=== PATIENT | female | born 1990 | race Caucasian/White ===

== ENCOUNTER 2016-08-03 16:30 | Emergency (ER) | payer OTHER ==
--- NOTE | 2016-08-03 18:43 | ED ORDER SUMMARY ---
..... Patient: JENSEN AREVALO OrderSheet [facility] VisitID: [id number] [place] [address] 25y, F Registration Date/Time: 08/03/2016 ORDER SHEET Weight: 72.5 kg (stated) Allergies: Amoxicillin GENERAL ORDERS: US Soft Tissue Anywhere (no pain with passive ROM of the fingers/hand) Urgent (16:57 08/03/2016 Lamin Blake) (Ack 17:01 Broderick) (18:49 Esha Hedrick.NJai) Ice (16:58 08/03/2016 Lamin Blake) (Ack 17:01 Broderick) (17:01 Broderick) MEDICATION ORDERS: Toradol IM 60 mg (NOW) (16:58 08/03/2016 Lamin Blake) IV FLUIDS: ORDER SHEET NOTES: [Electronically signed by Amalia Nam R.N. (18:55 08/03/2016)] [Electronically signed by Delgado Mercado Dr. (02:01 08/10/2016)] [Electronically locked/signed by Amalia Nam R.N. (18:55 08/03/2016)]
--- NOTE | 2016-08-03 18:43 | ED NURSING NOTES ---
Clinical Report - Nurses [facility] [place] [address] 08/03/2016 16:30 [id number] TRI[facility] Triage time 16:37 Aug 03 2016. Acuity: LEVEL 4. Chief Complaint: LEFT UPPER EXTREMITY PAIN. Location of symptoms- left forearm. 16:41 08/03/16. SEPSIS SCREEN: Sepsis Screen. Negative (no infection suspected/documented). LUIS F COMA SCORE: [place] Coma Scale: 15- eyes open spontaneously (4); best verbal response- oriented x 4 (5); best motor response- obeys commands (6). --16:41 Amalia Nam R.N. 16:37 08/03/16. BP: 124/87 (regular adult cuff) taken on the left arm, while sitting. HR: 87. RR: 18 (regular). O2 saturation: 100% on room air. Temp: 98.4 F (oral). Pain level now: 8/10. --16:41 Amalia Nam R.N. Weight: 72.5 kg stated. Height/Length: 60 inches Per Patient. BMI: 31.2. --16:41 Amalia Nam R.N. Medications None. --16:39 Amalia Nam R.N. Allergies Amoxicillin. Definite Moderate(nausea, vomiting) (contipation) --16:39 Amalia aNm R.N. History Arrived by private vehicle. Historian: patient. No injury occurred. This occurred today. It is described as radiating to the left upper extremity and upper arm. 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 Treatment FLOW FLOOR ATTENDANT: Ice. PAST MEDICAL HX: Tetanus status: up-to-date. SOCIAL HX: Never smoker. Occasional alcohol use; consumes liquor and wine. No drug use. No infectious disease exposure. ABUSE ASSESSMENT: No report of abuse. --16:41 Amalia Nam R.N. PROBLEMS: Gastroenteritis. Back Pain. Ureterolithiasis. Bronchitis. Cough. URI. Abdominal Pain. UTI - Urinary Tract Infection. Bladder Infections. Immunizations. LNMP - Last Normal Menstrual Period. --16:39 Amalia Nam R.N. ADDITIONAL SURGERIES: Bunionectomy. Tonsillectomy. --16:39 Amalia Nam R.N. Interventions ID band on patient. To treatment room. --16:41 Amalia Nam R.N. PHYSICAL ASSESSMENT 16:42 08/03/16. Ambulatory to room. GENERAL / NEURO / PSYCH: Oriented X 4. EXTREMITIES: Extremities exhibit normal ROM. Left forearm: tenderness and swelling. ( tender with touch). SKIN: Skin intact. Skin is warm. --16:42 Amalia Nam R.N. NURSING PROGRESS NOTES 16:43 08/03/16. The plan of care for this patient has been created. Extremity elevated. Reassurance given. Two patient identifiers checked. Call light placed in reach. Side rails up x 1. Bed placed in lowest position. Brakes of bed on. Patient ready for evaluation- chart flagged and ED physician notified. --16:43 Amalia Nam R.N. 17:13 08/03/2016 Toradol (Ketorolac Tromethamine) IM 60 mg given. Given in the right deltoid. Allergies verified and confirmed 5 rights. --17:13 Amalia Nam R.N. 17:35 08/03/2016 Toradol IM Response: no adverse reaction pain is improving. Symptoms have improved the patient feels better. --17:35 Amalia Nam R.N. 17:38 08/03/16. ( Patient doing good, nothing needed at this time, boyfriend sitting at bed side). --17:38 Amalia Nam R.N. 17:35 08/03/16. BP: 112/74 (regular adult cuff) taken on the left arm, while sitting. HR: 79. RR: 18 (regular). O2 saturation: 100% on room air. Temp: 98.2 F (oral). Pain level now: 0/10. --17:38 Amalia Nam R.N. 18:14 08/03/16. ( Patient still waiting on scan no pain noted per patient). --18:14 Amalia Nam R.N. DISPOSITION / DISCHARGE 18:54 08/03/16. Condition at departure: improved. No learning barriers present. Discharge instructions provided and reviewed with the patient. Reviewed medication(s) side effects, precautions and dosing information. Reviewed positioning instructions (ice). Patient verbalized understanding. Written instructions provided in Romansh. The patient was discharged by the physician. She was discharged home and accompanied by administrative law judge. She left the Emergency Department ambulatory and via private vehicle. Logistics Research Engineer driving. --18:54 Amalia Nam R.N. 18:51 08/03/16. BP: 120/76 (regular adult cuff) taken on the left arm, while sitting. HR: 80. RR: 18 (regular). O2 saturation: 100% on room air. Temp: 98.2 F (oral). Pain level now: 06/27. --18:54 Amalia Nam R.N. Departure time: 18:54 Aug 03 2016. --18:54 Amalia Nam R.N. Locked/Released at 08/03/2016 18:55 by Amalia Nam R.N.
--- NOTE | 2016-08-03 18:43 | ED NURSING NOTES ---
Clinical Report - Nurses [facility] [place] [address] 08/03/2016 16:30 [id number] Triage time 16:37 Aug 03 2016. Acuity: LEVEL 4. Chief Complaint: LEFT UPPER EXTREMITY PAIN. Location of symptoms- left forearm. 16:41 08/03/16. SEPSIS SCREEN: Sepsis Screen. Negative (no infection suspected/documented). LUIS F COMA SCORE: [place] Coma Scale: 15- eyes open spontaneously (4); best verbal response- oriented x 4 (5); best motor response- obeys commands (6). --16:41 Amalia Nam R.N. 16:37 08/03/16. BP: 124/87 (regular adult cuff) taken on the left arm, while sitting. HR: 87. RR: 18 (regular). O2 saturation: 100% on room air. Temp: 98.4 F (oral). Pain level now: 8/10. --16:41 Amalia Nam R.N. Weight: 72.5 kg stated. Height/Length: 60 inches Per Patient. BMI: 31.2. --16:41 Amalia Nam R.N. Medications None. --16:39 Amalia Nam R.N. Allergies Amoxicillin. Definite Moderate(nausea, vomiting) (contipation) --16:39 Amalia Nam R.N. History Arrived by private vehicle. Historian: patient. No injury occurred. This occurred today. It is described as radiating to the left upper extremity and upper arm. 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 Treatment ESCALATOR ATTENDANT: Ice. PAST MEDICAL HX: Tetanus status: up-to-date. SOCIAL HX: Never smoker. Occasional alcohol use; consumes liquor and wine. No drug use. No infectious disease exposure. ABUSE ASSESSMENT: No report of abuse. --16:41 Amalia Nam R.N. PROBLEMS: Gastroenteritis. Back Pain. Ureterolithiasis. Bronchitis. Cough. URI. Abdominal Pain. UTI - Urinary Tract Infection. Bladder Infections. Immunizations. LNMP - Last Normal Menstrual Period. --16:39 Amalia Nam R.N. ADDITIONAL SURGERIES: Bunionectomy. Tonsillectomy. --16:39 Amalia Nam R.N. Interventions ID band on patient. To treatment room. --16:41 Amalia Nam R.N. PHYSICAL ASSESSMENT 16:42 08/03/16. Ambulatory to room. GENERAL / NEURO / PSYCH: Oriented X 4. EXTREMITIES: Extremities exhibit normal ROM. Left forearm: tenderness and swelling. ( tender with touch). SKIN: Skin intact. Skin is warm. --16:42 Amalia Nam R.N. NURSING PROGRESS NOTES 16:43 08/03/16. The plan of care for this patient has been created. Extremity elevated. Reassurance given. Two patient identifiers checked. Call light placed in reach. Side rails up x 1. Bed placed in lowest position. Brakes of bed on. Patient ready for evaluation- chart flagged and ED physician notified. --16:43 Amalia Nam R.N. 17:13 08/03/2016 Toradol (Ketorolac Tromethamine) IM 60 mg given. Given in the right deltoid. Allergies verified and confirmed 5 rights. --17:13 Amalia Nam R.N. 17:35 08/03/2016 Toradol IM Response: no adverse reaction pain is improving. Symptoms have improved the patient feels better. --17:35 Amalia Nam R.N. 17:38 08/03/16. ( Patient doing good, nothing needed at this time, boyfriend sitting at bed side). --17:38 Amalia Nam R.N. 17:35 08/03/16. BP: 112/74 (regular adult cuff) taken on the left arm, while sitting. HR: 79. RR: 18 (regular). O2 saturation: 100% on room air. Temp: 98.2 F (oral). Pain level now: 0/10. --17:38 Amalia Nam R.N. 18:14 08/03/16. ( Patient still waiting on scan no pain noted per patient). --18:14 Amalia Nam R.N. DISPOSITION / DISCHARGE 18:54 08/03/16. Condition at departure: improved. No learning barriers present. Discharge instructions provided and reviewed with the patient. Reviewed medication(s) side effects, precautions and dosing information. Reviewed positioning instructions (ice). Patient verbalized understanding. Written instructions provided in Pashto. The patient was discharged by the physician. She was discharged home and accompanied by line up worker. She left the Emergency Department ambulatory and via private vehicle. Boat Puller driving. --18:54 Amalia Nam R.N. 18:51 08/03/16. BP: 120/76 (regular adult cuff) taken on the left arm, while sitting. HR: 80. RR: 18 (regular). O2 saturation: 100% on room air. Temp: 98.2 F (oral). Pain level now: 06/27. --18:54 Amalia Nam R.N. Departure time: 18:54 Aug 03 2016. --18:54 Amalia Nam R.N. Locked/Released at 08/03/2016 18:55 by Amalia Nam R.N.
--- NOTE | 2016-08-03 18:43 | ED CLINICAL REPORT ---
Clinical Report - Physicians/Mid Levels [facility] [address] [place] [address] 08/03/2016 16:30 Patient: JENSEN AREVALO Time Seen: 1648. Arrived- By private vehicle. Historian- patient. HISTORY OF PRESENT ILLNESS Chief Complaint: Injury to left forearm. The injury happened past few days. Occurred at work. ( unknown how it was injured.). Patient denies injury to the head or neck. No other injury. REVIEW OF SYSTEMS The patient has had new onset of localized swelling. No tingling, numbness, weakness, suspected foreign body or skin laceration. PAST HISTORY See nurses notes. SOCIAL HISTORY Never smoker. Occasional alcohol use. No drug use. No recent travel. Is a local resident. ADDITIONAL NOTES The nursing notes have been reviewed. PHYSICAL EXAM Vital Signs: 08/03/2016 16:37 BP: 124/87. HR: 87. RR: 18. O2 saturation: 100%. Temp: 98.4 F. Pain level now: 8/10. Blood pressure normal. Oxygen saturation normal. Appearance: Alert. Oriented X3. No acute distress. Head: Head atraumatic. Eyes: Pupils equal, round and reactive to light. Eyes normal inspection. ENT: Ears normal. Nose normal. Pharynx normal. Neck: Normal inspection. Neck supple. C-spine non-tender. CVS: Normal heart rate and rhythm. Heart sounds normal. Pulses normal. Respiratory: No respiratory distress. Breath sounds normal. Chest nontender. Abdomen: No visible injury. Soft and nontender. Bowel sounds normal. Extremities: Mild soft tissue tenderness present over the distal left forearm. No signs of infection present in the upper extremities. No upper extremity bony tenderness. Extremities otherwise negative. Neuro, Vascular and Tendons: Vascular status intact. No pulse deficit present. Capillary refill not prolonged. Sensation intact. No sensory deficit. Motor intact. Tendon function intact. No functional tendon deficit or tendon injury seen. No weakness. (No increased pain with passive or active range of motion of the hand or elbow/wrist. vomitus. No masses. The skin is intact. No overlying skin changes.). LABS, X-RAYS, AND EKG Note - Special Studies: PROCEDURE: US SOFT TISSUE ANYWHERE INDICATION: LEFT VOLAR FOREARM PAIN AND SWELLING TECHNIQUE: Gordon scale and color Doppler sonographic images of the left volar forearm and wrist were obtained COMPARISON: None. FINDINGS: Soft tissues of the volar left forearm and wrist are normal. No evidence of mass or fluid collection. IMPRESSION: 1. Normal soft tissues of the volar left forearm and wrist. Reviewed by me. Interpreted by radiology. Agree withfindings. Discussed via phone as well as PACs. PROGRESS AND PROCEDURES Course of Care: The patient is a pleasant 25-year-old female presenting for evaluation of left forearm pain. Patient is reporting swelling to the area. No signs of infection at this time. Patient be evaluated with ultrasound and provide pain medication here in the emergency department. Differential diagnosis at this time includes cyst,abscess, lipoma. Patient is agreeable to the treatment plan. 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 No evidence of neurovascular compromise at this time. We'll monitor closely. Workup does not show any acute abnormalities. No fluid collections or masses identified via ultrasound. Because of the atraumatic nature of the patient's injury, do not feel radiographswould be warranted at this time. Pain is improved while here in the emergency department, patient continues to be neurovascularly intact. I discussion with patient in regards to her workup here in the emergency department including diagnosis, home care, follow-up, and return precautions. All questions have been answered. The patient expressed understanding of these instructions and was agreeable to them. Disposition: Discharged. Condition: good. CLINICAL IMPRESSION Muscle strain of the left forearm (distal flexor). INSTRUCTIONS Off work today, tomorrow. Warnings: CONTROLLED SUBSTANCE WARNINGS: The reason for controlled substance is related to an acute injury. Reviewed the risks and benefits of the medication and tolerance and dependence. Discussed warnings with the patient. GENERAL WARNINGS: Return or contact your physician immediately if your condition worsens or changes unexpectedly, if not improving as expected, or if other problems arise. Specifically return if pain, vomiting, bleeding, breathing difficulty or fever. Your Current Medications: CONTINUE TAKING THE FOLLOWING MEDICATIONS: None*. Prescription Medications: [place] 5 mg / 325 mg tablets: take 1 orally every 6 hours as needed for pain. Dispense twelve (12). No refill. Substitution is permissible. (use with caution. will make you sleepy.) OTC Medications: Motrin (available over the counter): take according to label instructions. Follow-up: Return to the emergency department as needed. Follow up with your doctor in three days. Reason for referral: recheck today's concerns. Summary of care provided to patient via paper. Screening today revealed the patient's blood pressure to be in the normal range. The patient should follow up with a primary care provider for blood pressure management. Understanding of the discharge instructions verbalized by patient. (Electronically signed by Delgado Mercado Dr. 08/10/2016 2:01)
--- NOTE | 2016-08-03 18:43 | ED ORDER SUMMARY ---
..... Patient: JENSEN AREVALO OrderSheet [facility] VisitID: [id number] [place] [address] 25y, F Registration Date/Time: 08/03/2016 ORDER SHEET Weight: 72.5 kg (stated) Allergies: Amoxicillin GENERAL ORDERS: US Soft Tissue Anywhere (no pain with passive ROM of the fingers/hand) Urgent (16:57 08/03/2016 Lamin Blake) (Ack 17:01 Broderick) (18:49 Esha Hedrick.NJai) Ice (16:58 08/03/2016 Lamin Blake) (Ack 17:01 Broderick) (17:01 Broderick) MEDICATION ORDERS: Toradol IM 60 mg (NOW) (16:58 08/03/2016 Lamin Blake) IV FLUIDS: ORDER SHEET NOTES: [Electronically signed by Amalia Nam R.N. (18:55 08/03/2016)] [Electronically signed by Delgado Mercado Dr. (02:01 08/10/2016)] [Electronically locked/signed by Amalia Nam R.N. (18:55 08/03/2016)]
--- NOTE | 2016-08-04 09:30 | DIAGNOSTIC IMAGING REPORT ---
PROCEDURE: US SOFT TISSUE ANYWHERE INDICATION: LEFT VOLAR FOREARM PAIN AND SWELLING TECHNIQUE: Gordon scale and color Doppler sonographic images of the left volar forearm and wrist were obtained COMPARISON: None. FINDINGS: Soft tissues of the volar left forearm and wrist are normal. No evidence of mass or fluid collection. IMPRESSION: 1. Normal soft tissues of the volar left forearm and wrist. 2. Findings as with Dr. Delgado Mercado.
--- NOTE | 2016-08-10 02:01 | ED DISCHARGE INSTRUCTIONS ---
Patient: JENSEN AREVALO General Instructions [facility] VisitID: [id number] [place] [address] 25y, F Registration Date/Time: 08/03/2016 Muscle strain of the left forearm (distal flexor). INSTRUCTIONS Off work today, tomorrow. Warnings: CONTROLLED SUBSTANCE WARNINGS: The reason for controlled substance is related to an acute injury. Reviewed the risks and benefits of the medication and tolerance and dependence. Discussed warnings with the patient. GENERAL WARNINGS: Return or contact your physician immediately if your condition worsens or changes unexpectedly, if not improving as expected, or if other problems arise. Specifically return if pain, vomiting, bleeding, breathing difficulty or fever. Your Current Medications: CONTINUE TAKING THE FOLLOWING MEDICATIONS: None*. Prescription Medications: [place] 5 mg / 325 mg tablets: take 1 orally every 6 hours as needed for pain. Dispense twelve (12). No refill. Substitution is permissible. (use with caution. will make you sleepy.) OTC Medications: Motrin (available over the counter): take according to label instructions. Follow-up: Return to the emergency department as needed. Follow up with your doctor in three days. Reason for referral: recheck today's concerns. Summary of care provided to patient via paper. Screening today revealed the patient's blood pressure to be in the normal range. The patient should follow up with a primary care provider for blood pressure management. Understanding of the discharge instructions verbalized by patient. ADDITIONAL INFORMATION Muscle Strain,Extremity A MUSCLE STRAIN is a stretching and tearing of muscle fibers. This causes pain, especially with motion of that muscle. There may also be some swelling and bruising. Home Care: 1) Keep the injured area raised to reduce pain and swelling. This is especially important during the first 48 hours. 2) Make an ice pack (ice cubes in a plastic bag, wrapped in a towel) and apply for 20 minutes every 1-2 hours the first day. You should continue with ice packs 3-4 times a day for the second and third days. Unless otherwise instructed, on the fourth day you may begin hot soaks or hot packs (small towel soaked in hot water) 3-4 times a day while you gently exercise the involved area. 3) You may use acetaminophen (Tylenol) or ibuprofen (Motrin, Advil) to control pain, unless another medicine was prescribed. [ NOTE : If you have chronic liver or kidney disease or ever had a stomach ulcer or GI bleeding, talk with your doctor before using these medicines.] 4) For LEG STRAINS: If CRUTCHES have been recommended, do not bear full weight on the injured leg until you can do so without pain. You may return to sports when you are able to hop and run on the injured leg without pain. Follow Up with your doctor or this facility if you are not improving within the next five days. Get Prompt Medical Attention if any of the following occur: -- Fingers or toes become swollen, cold, blue, numb or tingly -- Pain or swelling increases Hydrocodone Bitartrate, Acetaminophen Oral tablet What is this medicine? ACETAMINOPHEN; HYDROCODONE (a set a DWAIN ld fen; manny droe KOE done) is a pain reliever. It is used to treat mild to moderate pain. How should I use this medicine? Take this medicine by mouth. Swallow it with a full glass of water. Follow the directions on the prescription label. If the medicine upsets your stomach, take the medicine with food or milk. Do not take more than you are told to take. Talk to your outsole caser regarding the use of this medicine in children. This medicine is not approved for use in children. What side effects may I notice from receiving this medicine? Side effects that you should report to your doctor or health home care physical therapist as soon as possible: allergic reactions like skin rash, itching or hives, swelling of the face, lips, or tongue breathing problems confusion feeling faint or lightheaded, falls stomach pain yellowing of the eyes or skin Side effects that usually do not require medical attention (report to your doctor or health home care physical therapist if they continue or are bothersome): nausea, vomiting stomach upset What may interact with this medicine? alcohol antihistamines isoniazid medicines for depression, anxiety, or psychotic disturbances medicines for sleep muscle relaxants naltrexone narcotic medicines (opiates) for pain phenobarbital ritonavir tramadol What if I miss a dose? If you miss a dose, take it as soon as you can. If it is almost time for your next dose, take only that dose. Do not take double or extra doses. Where should I keep my medicine? Keep out of the reach of children. This medicine can be abused. Keep your medicine in a safe place to protect it from theft. Do not share this medicine with anyone. Selling or giving away this medicine is dangerous and against the law. Store at room temperature between 15 and 30 degrees C (59 and 86 degrees F). Protect from light. Keep container tightly closed. Throw away any unused medicine after the expiration date. Discard unused medicine and used packaging carefully. Pets and children can be harmed if they find used or lost packages. What should I tell my health care provider before I take this medicine? They need to know if you have any of these conditions: brain tumor Crohn's disease, inflammatory bowel disease, or ulcerative colitis drink more than 3 alcohol-containing drinks per day drug abuse or addiction head injury heart or circulation problems kidney disease or problems going to the bathroom liver disease lung disease, asthma, or breathing problems an unusual or allergic reaction to acetaminophen, hydrocodone, other opioid analgesics, other medicines, foods, dyes, or preservatives or trying to get breast-feeding What should I watch for while using this medicine? Tell your doctor or health home care physical therapist if your pain does not go away, if it gets worse, or if you have new or a different type of pain. You may develop tolerance to the medicine. Tolerance means that you will need a higher dose of the medicine for pain relief. Tolerance is normal and is expected if you take the medicine for a long time. Do not suddenly stop taking your medicine because you may develop a severe reaction. Your body becomes used to the medicine. This does NOT mean you are addicted. Addiction is a behavior related to getting and using a drug for a non-medical reason. If you have pain, you have a medical reason to take pain medicine. Your doctor will tell you how much medicine to take. If your doctor wants you to stop the medicine, the dose will be slowly lowered over time to avoid any side effects. You may get drowsy or dizzy when you first start taking the medicine or change doses. Do not drive, use machinery, or do anything that may be dangerous until you know how the medicine affects you. Stand or sit up slowly. There are different types of narcotic medicines (opiates) for pain. If you take more than one type at the same time, you may have more side effects. Give your health care provider a list of all medicines you use. Your doctor will tell you how much medicine to take. Do not take more medicine than directed. Call emergency for help if you have problems breathing. The medicine will cause constipation. Try to have a bowel movement at least every 2 to 3 days. If you do not have a bowel movement for 3 days, call your doctor or health home care physical therapist. Too much acetaminophen can be very dangerous. Do not take Tylenol (acetaminophen) or medicines that contain acetaminophen with this medicine. Many non-prescription medicines contain acetaminophen. Always read the labels carefully. You have been given the following additional information: Muscle Strain, Extremity Hydrocodone Bitartrate, Acetaminophen Oral tablet Off work today, tomorrow. (Electronically signed by Delgado Mercdao Dr. 08/10/2016 2:01)
--- NOTE | 2016-08-10 02:01 | ED DISCHARGE INSTRUCTIONS ---
Patient: JENSEN AREVALO General Instructions [facility] VisitID: [id number] [place] [address] 25y, F Registration Date/Time: 08/03/2016 Muscle strain of the left forearm (distal flexor). INSTRUCTIONS Off work today, tomorrow. Warnings: CONTROLLED SUBSTANCE WARNINGS: The reason for controlled substance is related to an acute injury. Reviewed the risks and benefits of the medication and tolerance and dependence. Discussed warnings with the patient. GENERAL WARNINGS: Return or contact your physician immediately if your condition worsens or changes unexpectedly, if not improving as expected, or if other problems arise. Specifically return if pain, vomiting, bleeding, breathing difficulty or fever. Your Current Medications: CONTINUE TAKING THE FOLLOWING MEDICATIONS: None*. Prescription Medications: Waldron 5 mg / 325 mg tablets: take 1 orally every 6 hours as needed for pain. Dispense twelve (12). No refill. Substitution is permissible. (use with caution. will make you sleepy.) OTC Medications: Motrin (available over the counter): take according to label instructions. Follow-up: Return to the emergency department as needed. Follow up with your doctor in three days. Reason for referral: recheck today's concerns. Summary of care provided to patient via paper. Screening today revealed the patient's blood pressure to be in the normal range. The patient should follow up with a primary care provider for blood pressure management. Understanding of the discharge instructions verbalized by patient. ADDITIONAL INFORMATION Muscle Strain,Extremity A MUSCLE STRAIN is a stretching and tearing of muscle fibers. This causes pain, especially with motion of that muscle. There may also be some swelling and bruising. Home Care: 1) Keep the injured area raised to reduce pain and swelling. This is especially important during the first 48 hours. 2) Make an ice pack (ice cubes in a plastic bag, wrapped in a towel) and apply for 20 minutes every 1-2 hours the first day. You should continue with ice packs 3-4 times a day for the second and third days. Unless otherwise instructed, on the fourth day you may begin hot soaks or hot packs (small towel soaked in hot water) 3-4 times a day while you gently exercise the involved area. 3) You may use acetaminophen (Tylenol) or ibuprofen (Motrin, Advil) to control pain, unless another medicine was prescribed. [ NOTE : If you have chronic liver or kidney disease or ever had a stomach ulcer or GI bleeding, talk with your doctor before using these medicines.] 4) For LEG STRAINS: If CRUTCHES have been recommended, do not bear full weight on the injured leg until you can do so without pain. You may return to sports when you are able to hop and run on the injured leg without pain. Follow Up with your doctor or this facility if you are not improving within the next five days. Get Prompt Medical Attention if any of the following occur: -- Fingers or toes become swollen, cold, blue, numb or tingly -- Pain or swelling increases Hydrocodone Bitartrate, Acetaminophen Oral tablet What is this medicine? ACETAMINOPHEN; HYDROCODONE (a set a DWAIN ld fen; manny droe KOE done) is a pain reliever. It is used to treat mild to moderate pain. How should I use this medicine? Take this medicine by mouth. Swallow it with a full glass of water. Follow the directions on the prescription label. If the medicine upsets your stomach, take the medicine with food or milk. Do not take more than you are told to take. Talk to your shopping centre manager regarding the use of this medicine in children. This medicine is not approved for use in children. What side effects may I notice from receiving this medicine? Side effects that you should report to your doctor or health in home caregiver as soon as possible: allergic reactions like skin rash, itching or hives, swelling of the face, lips, or tongue breathing problems confusion feeling faint or lightheaded, falls stomach pain yellowing of the eyes or skin Side effects that usually do not require medical attention (report to your doctor or health in home caregiver if they continue or are bothersome): nausea, vomiting stomach upset What may interact with this medicine? alcohol antihistamines isoniazid medicines for depression, anxiety, or psychotic disturbances medicines for sleep muscle relaxants naltrexone narcotic medicines (opiates) for pain phenobarbital ritonavir tramadol What if I miss a dose? If you miss a dose, take it as soon as you can. If it is almost time for your next dose, take only that dose. Do not take double or extra doses. Where should I keep my medicine? Keep out of the reach of children. This medicine can be abused. Keep your medicine in a safe place to protect it from theft. Do not share this medicine with anyone. Selling or giving away this medicine is dangerous and against the law. Store at room temperature between 15 and 30 degrees C (59 and 86 degrees F). Protect from light. Keep container tightly closed. Throw away any unused medicine after the expiration date. Discard unused medicine and used packaging carefully. Pets and children can be harmed if they find used or lost packages. What should I tell my health care provider before I take this medicine? They need to know if you have any of these conditions: brain tumor Crohn's disease, inflammatory bowel disease, or ulcerative colitis drink more than 3 alcohol-containing drinks per day drug abuse or addiction head injury heart or circulation problems kidney disease or problems going to the bathroom liver disease lung disease, asthma, or breathing problems an unusual or allergic reaction to acetaminophen, hydrocodone, other opioid analgesics, other medicines, foods, dyes, or preservatives or trying to get breast-feeding What should I watch for while using this medicine? Tell your doctor or health in home caregiver if your pain does not go away, if it gets worse, or if you have new or a different type of pain. You may develop tolerance to the medicine. Tolerance means that you will need a higher dose of the medicine for pain relief. Tolerance is normal and is expected if you take the medicine for a long time. Do not suddenly stop taking your medicine because you may develop a severe reaction. Your body becomes used to the medicine. This does NOT mean you are addicted. Addiction is a behavior related to getting and using a drug for a non-medical reason. If you have pain, you have a medical reason to take pain medicine. Your doctor will tell you how much medicine to take. If your doctor wants you to stop the medicine, the dose will be slowly lowered over time to avoid any side effects. You may get drowsy or dizzy when you first start taking the medicine or change doses. Do not drive, use machinery, or do anything that may be dangerous until you know how the medicine affects you. Stand or sit up slowly. There are different types of narcotic medicines (opiates) for pain. If you take more than one type at the same time, you may have more side effects. Give your health care provider a list of all medicines you use. Your doctor will tell you how much medicine to take. Do not take more medicine than directed. Call emergency for help if you have problems breathing. The medicine will cause constipation. Try to have a bowel movement at least every 2 to 3 days. If you do not have a bowel movement for 3 days, call your doctor or health in home caregiver. Too much acetaminophen can be very dangerous. Do not take Tylenol (acetaminophen) or medicines that contain acetaminophen with this medicine. Many non-prescription medicines contain acetaminophen. Always read the labels carefully. You have been given the following additional information: Muscle Strain, Extremity Hydrocodone Bitartrate, Acetaminophen Oral tablet Off work today, tomorrow. (Electronically signed by Delgado Mercado Dr. 08/10/2016 2:01)
--- NOTE | 2016-08-10 02:01 | ED MAR SUMMARY ---
..... Medication Administration Record [facility] [address] [place] [address] Patient: JENSEN AREVALO Visit ID: [id number] 25y, F Weight: 72.5 kg Height/Length: 60 in BMI: 31.2 ALLERGIES: Amoxicillin Given 17:13 08/03/2016 Amalia Nam R.N. Medication Administered: TORADOL [IM] (KETOROLAC TROMETHAMINE), Dose: 60 mg IM. Medication Ordered: Toradol IM 60 mg (NOW).
--- NOTE | 2016-08-10 02:01 | ED MED RECONCILIATION SUMMARY ---
Patient: JENSEN AREVALO Medication Reconciliation Report [facility] VisitID: [id number] [place] [address] 25y, F Registration Date/Time: 08/03/2016 Weight: 72.5 kg Height/Length: 60 in. BMI: 31.2 ALLERGIES: Amoxicillin The patient's Home Medications are listed below: NONE. The source(s) of the original Home Medication information: Not obtained. The following Medications were given to the patient in the Emergency Department: Toradol [IM] IM 60 mg, administered: 08/03/2016 5:13:00 PM The following Medications were prescribed to the patient: Motrin (available over the counter): take according to label instructions. -- Delgado Mercado Dr. Norco 5 mg / 325 mg tablets: take 1 orally every 6 hours as needed for pain. Dispense twelve (12). No refill. Substitution is permissible.(use with caution. will make you sleepy.) -- Delgado Mercado Dr.
--- NOTE | 2016-08-10 02:01 | ED MAR SUMMARY ---
..... Medication Administration Record [facility] [address] [place] [address] Patient: JENSEN AREVALO Visit ID: [id number] 25y, F Weight: 72.5 kg Height/Length: 60 in BMI: 31.2 ALLERGIES: Amoxicillin Given 17:13 08/03/2016 Amalia Nam R.N. Medication Administered: TORADOL [IM] (KETOROLAC TROMETHAMINE), Dose: 60 mg IM. Medication Ordered: Toradol IM 60 mg (NOW).
--- NOTE | 2016-08-10 02:01 | ED MED RECONCILIATION SUMMARY ---
Patient: JENSEN AREVALO Medication Reconciliation Report [facility] VisitID: [id number] [place] [address] 25y, F Registration Date/Time: 08/03/2016 Weight: 72.5 kg Height/Length: 60 in. BMI: 31.2 ALLERGIES: Amoxicillin The patient's Home Medications are listed below: NONE. The source(s) of the original Home Medication information: Not obtained. The following Medications were given to the patient in the Emergency Department: Toradol [IM] IM 60 mg, administered: 08/03/2016 5:13:00 PM The following Medications were prescribed to the patient: Motrin (available over the counter): take according to label instructions. -- Delgado Mercado Dr. Norco 5 mg / 325 mg tablets: take 1 orally every 6 hours as needed for pain. Dispense twelve (12). No refill. Substitution is permissible.(use with caution. will make you sleepy.) -- Delgado Mercado Dr.
== END 2016-08-03 18:54 | disposition home or self-care (01) ==
LOC: ED SRH 16:30
DX: S56.512A Strain of other extensor muscle, fascia and tendon at forearm level, left arm, initial encounter (principal); X58.XXXA Exposure to other specified factors, initial encounter; Y93.9 Activity, unspecified; Y92.9 Unspecified place or not applicable; Y99.0 Civilian activity done for income or pay; Z88.1 Allergy status to other antibiotic agents